=== PATIENT | male | born 1985 | race African-American/Black ===

== ENCOUNTER → 2017-06-29 | Outpatient (CLI) | payer OTHER ==
[~2017-06-29] MED LIST: HYDR-971 PO; IOHEXOL 300 MG/ML 75 ML VIAL. IV ONE; SULF1TAB24 PO
[2017-06-29 17:33] LABS: BASO # 0.1 x10^3/uL (0.0-0.2); BASO % 1 % (0-3); EOS # 0.2 x10^3/uL (0.0-0.7); EOS % 1 % (0-3); HEMATOCRIT 44.2 % (39.0-53.0); HEMOGLOBIN 14.7 g/dL (13.0-17.5); LYMPH # 1.9 x10^3/uL (1.0-4.8); LYMPH % 18 % (24-48); MEAN CORPUSCULAR HEMOGLOBIN 31 pg (25-35); MEAN CORPUSCULAR HGB CONC 33 g/dL (31-37); MEAN CORPUSCULAR VOLUME 93 fL (79-100); MONO # 0.9 x10^3/uL (0.0-1.1); MONO % 8 % (0-9); NEUT # 7.5 x10^3uL (1.8-7.7); NEUT % 72 % (31-73); PLATELET COUNT 202 x10^3/uL (140-400); RED BLOOD COUNT 4.74 x10^6/uL (4.30-5.70); RED CELL DISTRIBUTION WIDTH 12.6 % (11.5-14.5); WHITE BLOOD COUNT 10.4 x10^3/uL (4.0-11.0)
[2017-06-29 17:45] LABS: ALBUMIN 3.6 g/dL (3.4-5.0); ALBUMIN/GLOBULIN RATIO 0.9 (1.0-1.7); CALCIUM 8.6 mg/dL (8.5-10.1); GFR 113.1; POTASSIUM 3.9 mmol/L (3.5-5.1); TOTAL BILIRUBIN 0.3 mg/dL (0.2-1.0); TOTAL PROTEIN 7.5 g/dL (6.4-8.2)
--- NOTE | 2017-06-29 18:35 | RAD ---
CT scan of the neck with contrast 06/29/2017 CLINICAL HISTORY: Left neck swelling. TECHNIQUE: After the intravenous administration of 75 cc of Isovue-370, contiguous, 3 mm axial sections were obtained through the neck. One or more of the following individualized dose reduction techniques were utilized for this study: 1. Automated exposure control. 2. Adjustment of the mA and/or kV according to patient size. 3. Use of iterative reconstruction technique. FINDINGS: The mucosal pattern of the nasopharynx, oropharynx, hypopharynx and larynx are within normal limits. The parotid glands, thyroid gland and submandibular glands are within normal limits. Skin thickening is seen involving the inferior left neck near the region of the left aspect of the mandible. Increased density is seen within the adjacent fat. These findings likely reflect a cellulitis. An oval-shaped low-attenuation area is seen in this region immediately inferior and lateral to the left submandibular gland. This measures 3.0 x 1.3 x 1.3 cm and transverse, AP and craniocaudal dimensions. It is suspicious for an abscess. It is approximately 3 mm deep to the skin surface. No additional abnormal fluid collection is seen. Enlarged lymph nodes are seen within the submental region of the neck which measure 1 cm to 1.7 cm in greatest diameter. The osseous structures are grossly intact. The paranasal sinuses are clear. IMPRESSION: 3 cm oval-shaped structure is seen within the left neck immediately inferior and lateral to the left submandibular gland. This fluid collection is approximately 3 mm deep to the skin surface and is suspicious for an abscess as outlined above. Electronically signed by: Gamaliel Ashley MD (06/29/2017 6:32 PM) [facility]
== END | disposition home or self-care (01) ==
LOC: EDBD → LAB 16:33
PROVIDERS: ATTEND Family Medicine
DX: R59.9 Enlarged lymph nodes, unspecified (principal); R23.4 Changes in skin texture; F17.200 Nicotine dependence, unspecified, uncomplicated; Z72.89 Other problems related to lifestyle
CPT/HCPCS: 36415; 70491; 80053; 84443; 85025; Q9967

== ENCOUNTER 2017-06-30 08:30 | Emergency (ER) | payer OTHER ==
--- NOTE | 2017-06-30 08:37 | PHYS DOC ---
General Chief Complaint: ABSCESS Stated Complaint: ABSCESS Time Seen by MD: 08:34 Source: patient Exam Limitations: no limitations Problems: History of Present Illness Initial Comments Patient is a 32-year-old male who presents to the emergency department at the request of his doctor for abscess drainage. Patient states that he saw his doctor yesterday with a swollen tender bump on his left neck. He states that he's had no fever chills sweats or body aches, no nausea vomiting or diarrhea, no difficulty breathing or swallowing and no range of motion deficits due to this area of swelling. His doctor ordered a CT soft tissue neck with contrast and I have attached the report to this chart. It revealed a 3 cm oval-shaped abscess with surrounding cellulitis lateral to the left submandibular gland and 3 mm deep to the skin surface. He states that his doctor sent him here for drainage of this abscess. Patient has been taking [id number] ibuprofen and using warm compresses otherwise no pre-arrival treatment. 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 Timing/Duration: 1 week, getting worse Severity: moderate Modifying Factors: worse with movement, improves with rest Associated Symptoms: other Allergies: Coded Allergies: No Known Drug Allergies (Unverified , 06/29/17) Past Medical History Medical History: no pertinent history Surgical History: no surgical history Social History Smoker: non-smoker Alcohol: occasionally Drugs: none Review of Systems Constitutional: denies chills, denies diaphoresis, denies fever, denies malaise EENTM: denies ear discharge, denies throat swelling, denies mouth swelling Respiratory: denies cough, denies shortness of breath, denies wheezing Cardiovascular: denies chest pain, denies palpitations, denies syncope Gastrointestinal: denies abdominal pain, denies diarrhea, denies nausea, denies vomiting Genitourinary: denies dysuria, denies frequency, denies hematuria Musculoskeletal: see HPI, denies back pain, denies joint swelling Skin: see HPI Psychiatric/Neurological: denies headache, denies numbness, denies paresthesia Physical Exam General Appearance: WD/WN, no apparent distress Eyes: bilateral eye normal inspection, bilateral eye PERRL, bilateral eye EOMI Ear, Nose, Throat: hearing grossly normal, normal ENT inspection, normal pharynx Neck: non-tender, full range of motion, supple (approximately 3 cm left sided submandibular abscess with warmth and tenderness as well as fluctuance. The overlying tissues and 2 cm halo surrounding tissues are indurated and warm but nonfluctuant consistent with cellulitis. There are no skin breaks no spontaneous drainage and no discharge noted.) Respiratory: normal breath sounds, no respiratory distress Cardiovascular: normal peripheral pulses, regular rate, rhythm Back: no CVA tenderness, no vertebral tenderness Extremities: normal range of motion, non-tender, normal inspection Neurologic/Psychiatric: under baster II-XII nml as tested, no motor/sensory deficits, alert, normal mood/affect, oriented x 3 Skin: warm/dry (left submandibular skin changes as above.) Incision and Drainage Incision and Drainage : Blade Size: 11 I & D Procedure: betadine prep, sterile drapes applied Progress Informed consent obtained. 5 mL 2% lidocaine with epinephrine utilized for analgesia, first to create a skin wheal then to infiltrate the abscess pocket itself. While infiltrating the abscess pocket a spontaneous drain at the lateral aspect began leaking copious amounts of purulent material. At this time a wound culture was obtained. After adequate analgesia a #11 blade was used to make a small incision, curved hemostat utilized to widen the surgical wound and inserted to break up loculations. Copious amounts of purulent yellowish discharge were manipulated out by me using external pressure. Syringe with IV catheter and normal saline utilized to irrigate the entire abscess pocket, 250 mL utilized for irrigation. Sterile dressing was applied by the RN the patient tolerated the procedure well there were no complications estimated blood loss minimal. See departure instructions for wound care and follow-up. Orders, Labs, Meds PATIENT: KELLI MASON ACCOUNT: [id number] : 06/20/1995 LOCATION: LAB AGE: 22 SEX: M EXAM STATUS: REG CLI ORD. PHYSICIAN: MIRI BARLOW MD REASON: SUBMANDIBULAR ABSCESS ON LEFT SIDE PROCEDURE: CT SOFT TISSUE NECK W/CONTRAST CT scan of the neck with contrast 06/29/2017 CLINICAL HISTORY: Left neck swelling. TECHNIQUE: After the intravenous administration of 75 cc of Isovue-370, contiguous, 3 mm axial sections were obtained through the neck. One or more of the following individualized dose reduction techniques were utilized for this study: 1. Automated exposure control. 2. Adjustment of the mA and/or kV according to patient size. 3. Use of iterative reconstruction technique. FINDINGS: The mucosal pattern of the nasopharynx, oropharynx, hypopharynx and larynx are within normal limits. The parotid glands, thyroid gland and submandibular glands are within normal limits. Skin thickening is seen involving the inferior left neck near the region of the left aspect of the mandible. Increased density is seen within the adjacent fat. These findings likely reflect a cellulitis. An oval-shaped low-attenuation area is seen in this region immediately inferior and lateral to the left submandibular gland. This measures 3.0 x 1.3 x 1.3 cm and transverse, AP and craniocaudal dimensions. It is suspicious for an abscess. It is approximately 3 mm deep to the skin surface. No additional abnormal fluid collection is seen. Enlarged lymph nodes are seen within the submental region of the neck which measure 1 cm to 1.7 cm in greatest diameter. The osseous structures are grossly intact. The paranasal sinuses are clear. IMPRESSION: 3 cm oval-shaped structure is seen within the left neck immediately inferior and lateral to the left submandibular gland. This fluid collection is approximately 3 mm deep to the skin surface and is suspicious for an abscess as outlined above. Electronically signed by: Gamaliel Ashley MD (06/29/2017 6:32 PM) [facility] DICTATED AND SIGNED BY: GAMALIEL ASHLEY MD DATE: 06/29/17 1824 CC: MIRI BARLOW MD ~ Labs obtained yesterday reviewed by me, white blood cell count 10.4 chemistry within normal limits. I discussed signs and symptoms to monitor as well as indications for urgent return to the emergency department. Patient questions were answered expressed agreement and understanding with the treatment plan and agreed to follow-up as instructed. Departure Time of Disposition: 09:51 Disposition: HOME, SELF-CARE Diagnosis: Submandibular Abscess Condition: GOOD Patient Instructions: Abscess, Care After Additional Instructions: Off for through Sunday, note given. Keep wound covered with sterile dressing until doctor follow-up. Wash wound twice daily with soap and warm water, blot dry. Change dressing after each wash. Warm compresses to the affected area 4-6 times daily. [id number] ibuprofen for baseline discomfort. Prescription: Bactrim DS, [place] 5 mg quantity 10 Do not take the prescription medications together. Take medications with food to avoid abdominal discomfort and potential vomiting. Follow-up with Dr. Barlow on Sunday for recheck and wound culture report. Take these discharge instructions to that doctor visit. Return to ED with new or changing symptoms. MATT GAMBOA DO Jun 30, 2017 08:36
[2017-06-30 08:40] VITALS: BP 139/80
[2017-06-30] MEDS ORDERED: LIDOCAINE 2%/EPI 1:100,000 20 ML VIAL. IJ ONE (09:30)
[2017-06-30] MEDS ORDERED: HYDR-971 PO (09:51)
[2017-06-30] MEDS ORDERED: SULF1TAB24 PO (09:51)
[2017-06-30] MEDS ORDERED: ONDANSETRON ODT 4 MG TAB.RAPDIS ONE (09:56)
[2017-06-30] MEDS ORDERED: SMZ/TMP 800/160MG TABLET. PO ONE ×3 (09:56→10:15)
[2017-06-30] MEDS ORDERED: ONDANSETRON ODT 4 MG TAB.RAPDIS PO ONE ×2 (10:00→10:15)
== END 2017-06-30 10:00 | disposition home or self-care (01) ==
LOC: ER 08:30 → EDBD 08:30 → ER 10:00
DX: K11.3 Abscess of salivary gland (principal); R22.1 Localized swelling, mass and lump, neck
CPT/HCPCS: 87070; 87186; 99284; Q0162; 99285-25